=== PATIENT | female | born 1950 ===

== ENCOUNTER 2016-12-06 09:04 | Observation (INO) | payer MEDICARE ==
[2016-12-06 09:16] VITALS: BMI 28.6
[2016-12-06 09:18] VITALS: RESP 18
[2016-12-06] MEDS ORDERED: MethylPREDNISolone 40 mg Vial IVP STA (09:33)
[2016-12-06] MEDS ORDERED: DiphenhydrAMINE 50 mg/ml Inj IVP STA (09:33)
--- NOTE | 2016-12-06 09:44 | C.PDOC ---
History Of Present Illness 66 y/o female, with PMHx of HTN, diabetes, hyperlipidemia, presents to the ED for evaluation of upper lip swelling. Pt states she developed lower lip swelling 2 days ago which resolved after taking Benadryl, but states she developed upper lip swelling now. Otherwise, denies fever, known allergens, difficulty swallowing, shortness of breath, or any other associated symptoms at this time. Notes taking enalapril for the last 3 years for HTN. Time Seen by Provider: 12/06/16 09:28 Chief Complaint (Nursing): Allergic Reaction History Per: Patient History/Exam Limitations: no limitations Onset/Duration Of Symptoms: Days Current Symptoms Are (Timing): Still Present Possible Cause: Unknown Associated Symptoms: Swelling. denies: Skin Rash, Dyspnea, Trouble Swallowing, Dizziness, Itching, Redness, Chest Pain Home/EMS Treatment: Benadryl Severity: None Pain Scale Rating Of: 0 Recent travel outside of the [place]: No Additional History Per: Patient Past Medical History Reviewed: Historical Data, Nursing Documentation, Vital Signs Vital Signs: Last Vital Signs Temp 97.7 F 12/06/16 09:17 Pulse 85 12/06/16 09:17 Resp 18 12/06/16 09:17 BP 150/87 12/06/16 09:17 Pulse Ox 99 12/06/16 11:25 - Medical History PMH: Arthritis, Diabetes, HTN, Hypercholesterolemia, Pneumonia (currently being treated) Family History: States: Unknown Family Hx - Social History Hx Tobacco Use: No Hx Alcohol Use: No Hx Substance Use: No - Immunization History Hx Tetanus Toxoid Vaccination: No Hx Influenza Vaccination: Yes Hx Pneumococcal Vaccination: No Review Of Systems Except As Marked, All Systems Reviewed And Found Negative. Constitutional: Negative for: Fever, Chills ENT: Negative for: Throat Swelling Respiratory: Negative for: Shortness of Breath Skin: Positive for: Other (upper lip swelling) Physical Exam - Physical Exam Appears: Non-toxic, No Acute Distress Skin: Normal Color, Warm, Dry Head: Atraumatic, Normacephalic Eye(s): bilateral: Normal Inspection, EOMI Oral Mucosa: Moist Tongue: Normal Appearing Lips: Swelling (moderate upper lip), No Abrasion, No Laceration, No Lesions Throat: Normal, No Other (no oropharyngeal swelling) Neck: Supple Cardiovascular: Rhythm Regular, No Murmur Respiratory: Normal Breath Sounds, No Accessory Muscle Use, No Rales, No Rhonchi , No Wheezing, Other (Speaking in full sentences ) Neurological/Psych: Oriented x3, Normal Speech, Normal Cognition ED Course And Treatment - Laboratory Results Result Diagrams: 12/06/16 10:00 12/06/16 10:00 O2 Sat by Pulse Oximetry: 99 (RA) Pulse Ox Interpretation: Normal Medical Decision Making Medical Decision Making: Blood work ordered and reviewed. Pt was treated with Benadryl, Pepcid, and Solu- Medrol. suspecte angioedema 2/2 michaelle 1030: pt reasseseD: symptoms improving. 11:25: On reassessment, pt reports improvement of symptoms, and feels comfortable being discharged home. 1200: pt reassesed: symtoms nearly resolve.d pt asking for d/c decline further obs in hospital or er. advise to d/c MICHAELLE Disposition - Disposition Disposition: HOME/ ROUTINE Disposition Time: 11:48 Condition: STABLE Additional Instructions: please follow up with your doctor. return toer with worsenning. d/c enalapril. discuss meds with your doctor. Prescriptions: DiphenhydrAMINE [Benadryl] 25 mg PO Q4 PRN #20 cap PRN Reason: Allergy Symptoms Famotidine [Pepcid] 20 mg PO DAILY #7 tab Prednisone 50 mg PO DAILY #5 tablet Instructions: Angioedema (ED) Forms: [facility] (Kyrgyz) - Clinical Impression Clinical Impression: Angioedema - Scribe Statement The provider has reviewed the documentation as recorded by the Reenaibajay Davidson All medical record entries made by the Scribe were at my direction and personally dictated by me. I have reviewed the chart and agree that the record accurately reflects my personal performance of the history, physical exam, medical decision making, and the department course for this patient. I have also personally directed, reviewed, and agree with the discharge instructions and disposition.
[2016-12-06] MEDS ORDERED: DiphenhydrAMINE 50 mg/ml Inj ONE (09:48)
[2016-12-06 10:04] LABS: BASO % 0.6 % (0.0-2.0); EOS # 0.2 K/uL (0.0-0.7); EOS % 3.7 % (0.0-4.0); HEMATOCRIT 41.9 % (34.0-47.0); LYMPH # 1.7 K/uL (1.0-4.3); LYMPH % 25.7 % (20.0-40.0); MEAN CORPUSCULAR HEMOGLOBIN 29.7 pg (27.0-31.0); MEAN CORPUSCULAR HGB CONC 32.8 g/dL (33.0-37.0); MEAN PLATELET VOLUME 9.2 fL (7.2-11.7); MONO # 0.5 K/uL (0.0-0.8); MONO % 7.7 % (0.0-10.0); WHITE BLOOD COUNT 6.6 K/uL (4.8-10.8)
[2016-12-06 10:07] LABS: MEAN CELL VOLUME 90.6 fL (81.0-99.0)
[2016-12-06 10:18] LABS: CHLORIDE 103 mmol/L (98-107)
[2016-12-06 10:19] LABS: POTASSIUM 4.6 mmol/L (3.6-5.2); SODIUM 142 mmol/L (132-148)
[2016-12-06 10:21] LABS: ALB/GLOB RATIO 1.1 (1.0-2.1); AST/SGOT 21 U/L (14-36); BILIRUBIN,TOTAL 1.1 mg/dL (0.2-1.3); BLOOD UREA NITROGEN 7 mg/dL (7-17); CARBON DIOXIDE 27 mmol/L (22-30); GFR AFRICAN-AMERICAN > 60; TOTAL PROTEIN 7.5 g/dL (6.3-8.3)
[2016-12-06 10:22] LABS: ALKALINE PHOSPHATASE 66 U/L (38-126); ALT/SGPT 17 U/L (9-52); CALCIUM 9.3 mg/dl (8.6-10.4); GLUCOSE,RANDOM 89 mg/dL (65-105)
[2016-12-06 12:05] VITALS: BP 122/75; PULSE 80; TEMP 98.2; O2SAT 98
== END 2016-12-06 11:48 | disposition home or self-care (01) ==
LOC: C.ER 09:04 → C.9OBSV 11:27
PROVIDERS: ADMIT Student in an Organized Health Care Education/Training Program; ATTEND Student in an Organized Health Care Education/Training Program
DX: T78.3XXA Angioneurotic edema, initial encounter (principal); E78.5 Hyperlipidemia, unspecified; I10 Essential (primary) hypertension; E11.9 Type 2 diabetes mellitus without complications; Z79.4 Long term (current) use of insulin
CPT/HCPCS: 36415; 80053; 85025; 96374; 99284; G0378; J1200; J2920

== ENCOUNTER 2017-12-23 15:04 | Emergency (ER) | payer MEDICARE ==
[2017-12-23 15:04] VITALS: BMI 28.6
[2017-12-23 15:09] VITALS: RESP 16; TEMP 98; O2SAT 99
[2017-12-23] MEDS ORDERED: Lidocaine 5% Patch TD STA (15:44)
[2017-12-23] MEDS ORDERED: Lidocaine 5% Patch TD ONE (15:54)
[2017-12-23 16:06] LABS: SQUAMOUS EPITHIAL 7 /hpf (0-5); URINE BACTERIA OCC (<OCC); URINE BILIRUBIN NEGATIVE (NEGATIVE); URINE BLOOD NEGATIVE (NEGATIVE); URINE CLARITY Hazy (Clear); URINE COLOR Yellow (YELLOW); URINE GLUCOSE (UA) NORMAL (Normal); URINE LEUKOCYTE ESTERASE 2+ Leu/uL (Negative); URINE PROTEIN NEGATIVE (NEGATIVE)
--- NOTE | 2017-12-23 16:16 | RAD ---
Date of service: 12/23/2017 PROCEDURE: Radiographs of the Lumbar Spine. HISTORY: low back pain COMPARISON: No prior. FINDINGS: BONES: Non marginal osteophyte formation at multiple levels visualized thoracolumbar spine. No listhesis. No fracture. DISC SPACES: Multilevel degenerative changes primarily disc space narrowing. OTHER FINDINGS: Calcified nonaneurysmal abdominal aorta. IMPRESSION: No acute findings related to/accounting for the clinical presentation. Multilevel degenerative change.
--- NOTE | 2017-12-23 17:33 | C.PDOC ---
History Of Present Illness 67 y/o female presents to the ED complaining of left lower back pain since Friday12/20/17. Pain worsens with movement and bending over. Patient denies any injury or fall. She is also complaining of some burning on urination. Otherwise no urinary frequency, urgency, fever, chills, incontinence, lower extremity weakness, paresthesias, flank pain, nausea, or vomiting. Time Seen by Provider: 12/23/17 15:22 Chief Complaint (Nursing): Back Pain History Per: Patient History/Exam Limitations: no limitations Onset/Duration Of Symptoms: Days (x4) Current Symptoms Are (Timing): Still Present Past Medical History Reviewed: Historical Data, Nursing Documentation, Vital Signs Vital Signs: Last Vital Signs Temp 98 F 12/23/17 15:06 Pulse 86 12/23/17 15:06 Resp 16 12/23/17 15:06 BP 147/84 12/23/17 15:06 Pulse Ox 99 12/23/17 17:42 - Medical History PMH: Arthritis, Diabetes, HTN, Hypercholesterolemia, Pneumonia (currently being treated) Family History: States: Unknown Family Hx - Social History Hx Tobacco Use: No Hx Alcohol Use: No Hx Substance Use: No - Immunization History Hx Tetanus Toxoid Vaccination: No Hx Influenza Vaccination: Yes Hx Pneumococcal Vaccination: No Review Of Systems Except As Marked, All Systems Reviewed And Found Negative. Constitutional: Negative for: Fever, Chills Gastrointestinal: Negative for: Nausea, Vomiting, Abdominal Pain Genitourinary: Positive for: Dysuria (burning sensation). Negative for: Frequency, Incontinence, Vaginal Discharge, Vaginal Bleeding Musculoskeletal: Positive for: Back Pain Neurological: Negative for: Weakness, Numbness, Incoordination Physical Exam - Physical Exam Appears: Non-toxic, No Acute Distress Skin: Normal Color, Warm, Dry Head: Atraumatic, Normacephalic Eye(s): bilateral: Normal Inspection Oral Mucosa: Moist Neck: Normal ROM, Supple Chest: Symmetrical Gastrointestinal/Abdominal: Soft, No Tenderness, No Distention Back: No CVA Tenderness, No Vertebral Tenderness, Decreased ROM (secondary to pain), Paraspinal Tenderness (with reproducible pain on palpation of the left lateral paralumbar and sacral regions) Extremity: Bilateral: Atraumatic, Normal Color And Temperature Pulses: Left Dorsalis Pedis: Normal, Right Dorsalis Pedis: Normal Neurological/Psych: Oriented x3, Normal Speech, Normal Motor, Normal Sensation Gait: Steady ED Course And Treatment O2 Sat by Pulse Oximetry: 99 (RA) Pulse Ox Interpretation: Normal - Other Rad x-ray lumbar spine X-Ray: Viewed By Me, Read By Radiologist Interpretation: Accession No. : [id number]. Patient Name / ID : KYLE Corcoran / [id number]. Exam Date : 12/23/2017 15:52:09 ( Approved ). Study Comment : Sex / Age : F / 67Y. Creator : Naila Beaulieu. Dictator : Christian Sweeney MD. Graduate Intern : Packer : Christian Sweeney MD. Approver2 : Report Date : 12/23/2017 16:06:46. My Comment : . Date of service: 12/23/2017. PROCEDURE: Radiographs of the Lumbar Spine. HISTORY: low back pain. COMPARISON: No prior. FINDINGS: BONES: Non marginal osteophyte formation at multiple levels visualized thoracolumbar spine. No listhesis. No fracture. DISC SPACES: Multilevel degenerative changes primarily disc space narrowing. OTHER FINDINGS: Calcified nonaneurysmal abdominal aorta. IMPRESSION: No acute findings related to/accounting for the clinical presentation. Multilevel degenerative change. Progress Note: Patient treated with Lidoderm patch and IM Toradol for pain control. X-ray taken of lumbar spine. UA shows indication of UTI. Cultures sent. Started patient on PO Macrobid. On re-evaluation patient is resting comfortably, reports improvement in pain, and is stable for discharge. Counseled patient regading diagnoses and treatment plan. Provided patient with prescriptions and follow up instructions. Disposition Counseled Patient/Family Regarding: Studies Performed, Diagnosis, Need For Followup, Rx Given - Disposition Referrals: Catina Coyne MD [Staff Provider] - Disposition: HOME/ ROUTINE Disposition Time: 17:33 Condition: STABLE Additional Instructions: Follow up with PMD within 1-2 days. Return to ED if feel worse. Prescriptions: Lidocaine 5% [Lidoderm] 1 patch TP DAILY #30 patch Nitrofurantoin Macrocrystals [Macrobid] 1 cap PO BID #14 cap Methocarbamol [Robaxin-750] 750 mg PO TID #30 tab Instructions: Urinary Tract Infections in Adults, Low Back Pain in Adults Forms: [facility] (Hungarian) Print Language: ENGLISH - POA Present On Arrival: None - Clinical Impression Clinical Impression: Low back pain, UTI (urinary tract infection) - PA / LANDMAN / Resident Statement MD/DO has reviewed & agrees with the documentation as recorded. - Scribe Statement The provider has reviewed the documentation as recorded by the Scribe (Patria Islas) All medical record entries made by the Scribe were at my direction and personally dictated by me. I have reviewed the chart and agree that the record accurately reflects my personal performance of the history, physical exam, medical decision making, and the department course for this patient. I have also personally directed, reviewed, and agree with the discharge instructions and disposition.
--- NOTE | 2017-12-23 17:36 | C.PDOC ---
Time Seen by Provider: 12/23/17 15:22 Chief Complaint (Nursing): Back Pain Past Medical History Vital Signs: Last Vital Signs Temp 98 F 12/23/17 15:06 Pulse 86 12/23/17 15:06 Resp 16 12/23/17 15:06 BP 147/84 12/23/17 15:06 Pulse Ox 99 12/23/17 15:06 - Medical History PMH: Arthritis, Diabetes, HTN, Hypercholesterolemia, Pneumonia (currently being treated) Family History: States: Unknown Family Hx - Social History Hx Tobacco Use: No Hx Alcohol Use: No Hx Substance Use: No - Immunization History Hx Tetanus Toxoid Vaccination: No Hx Influenza Vaccination: Yes Hx Pneumococcal Vaccination: No ED Course And Treatment O2 Sat by Pulse Oximetry: 99 Disposition - Disposition Referrals: Catina Coyne MD [Staff Provider] - Disposition: HOME/ ROUTINE Disposition Time: 17:33 Condition: STABLE Additional Instructions: Follow up with PMD within 1-2 days. Return to ED if feel worse. Prescriptions: Lidocaine 5% [Lidoderm] 1 patch TP DAILY #30 patch Nitrofurantoin Macrocrystals [Macrobid] 1 cap PO BID #14 cap Methocarbamol [Robaxin-750] 750 mg PO TID #30 tab Instructions: Low Back Pain in Adults, Urinary Tract Infections in Adults Forms: [facility] (Armenian) Print Language: GEORGIAN - Clinical Impression Clinical Impression: Low back pain, UTI (urinary tract infection)
[2017-12-23 17:44] VITALS: BP 134/78; PULSE 78
== END 2017-12-23 17:43 | disposition home or self-care (01) ==
LOC: C.ER 15:04
DX: N39.0 Urinary tract infection, site not specified (principal); M54.5 Low back pain; E11.9 Type 2 diabetes mellitus without complications; I10 Essential (primary) hypertension; E78.00 Pure hypercholesterolemia, unspecified
CPT/HCPCS: 72100; 81001; 87086; 96372; 99283; J1885

== ENCOUNTER 2018-01-29 07:11 | Day surgery (SDC) | payer MEDICARE ==
[2018-01-23 10:03] VITALS: BMI 29.6
[2018-01-29] MEDS ORDERED: Propofol 10 mg/ml Inj (20 ML) ONE ×2 (09:18→09:26)
[2018-01-29 10:05] VITALS: TEMP 97.8
[2018-01-29 12:22] VITALS: BP 121/67; PULSE 70; RESP 14; O2SAT 97
== END 2018-01-29 11:00 | disposition home or self-care (01) ==
LOC: C.ENDO 07:11
PROVIDERS: ATTEND Internal Medicine Gastroenterology
DX: Z12.11 Encounter for screening for malignant neoplasm of colon (principal); K57.30 Diverticulosis of large intestine without perforation or abscess without bleeding; K64.1 Second degree hemorrhoids; K55.21 Angiodysplasia of colon with hemorrhage; E11.9 Type 2 diabetes mellitus without complications; Z79.84 Long term (current) use of oral hypoglycemic drugs; E78.5 Hyperlipidemia, unspecified; Z86.010 Personal history of colon polyps

== ENCOUNTER 2018-06-08 07:25 | Outpatient (CLI) | payer MEDICARE | END 2018-06-08 07:26 | disposition home or self-care (01) | LOC: C.LAB 07:25 ==